=== PATIENT | female | born 1955 | race Caucasian/White ===

== ENCOUNTER 2021-11-24 18:09 | Emergency (ER) | payer MEDICARE ==
[~2021-11-24] VITALS: Ht 165.1 cm; Wt 97.5 kg
[2021-11-24] MEDS ORDERED: TRULICITY3 MG/0.5 M (19:28)
[2021-11-24] MEDS ORDERED: ADMELOG SO100 UNIT/2 (19:28)
[2021-11-24] MEDS ORDERED: METFORMIN HCL500 M3 PO (19:28)
[2021-11-24] MEDS ORDERED: CYMBALTA30 M2 PO (19:29)
[2021-11-24] MEDS ORDERED: LISI5 PO (19:29)
== END 2021-11-24 20:00 | disposition home or self-care (01) ==
LOC: ER 18:09
DX: S01.01XA Laceration without foreign body of scalp, initial encounter (principal); W10.9XXA Fall (on) (from) unspecified stairs and steps, initial encounter; Y92.9 Unspecified place or not applicable; Z88.6 Allergy status to analgesic agent; Z88.2 Allergy status to sulfonamides; Z88.8 Allergy status to other drugs, medicaments and biological substances; Z79.4 Long term (current) use of insulin; Z79.899 Other long term (current) drug therapy
CPT/HCPCS: 12001; 99282-25

== ENCOUNTER 2023-04-13 08:46 | Day surgery (SDC) | payer MEDICARE ==
[~2023-04-13] VITALS: Ht 162.6 cm; Wt 96.8 kg
[2023-04-13] VITALS (15 sets, daily range): BP systolic 109–147; BP diastolic 46–80
[~2023-04-13 08:46] MED LIST: ADMELOG SO100 UNIT/2; ASPI81CH PO; CYMBALTA30 M2 PO; Crestor20 MG PO; HUMALOG KW100 UNIT/1; LISI5 PO; METFORMIN HCL500 M3 PO; OMEP20ER PO; OZEMPIC1 MG/0.72; PREG150 PO; TRAZ100 PO; TRESIBA100 UNIT/2 SC; TRULICITY3 MG/0.5 M; TRULICITY3 MG/0.5 M SC
--- NOTE | 2023-04-13 09:45 | NUR ---
Ambulatory in Day Surgery with cane. Surgical site prepped with 2% Chlorhexidine cloth wipe. History, Chart, Medications and Allergies reviewed before start of procedure. Patient confirms NPO status and agrees with scheduled surgery. Pre-Op teaching done. Pt verbalizes understanding. Patient reports completing Chlorhexadine shower X2 prior to admission to hospital.
--- NOTE | 2023-04-13 13:56 | NUR ---
PATIENT ARRIVED FROM PACU TODAY AT 1400. POD 0 LEFT TOTAL KNEE PATIENT IS A&OX4. VS ARE WNL. PATIENT DENIES PAIN DUE TO SPINAL SHE HAD DURING THE PROCEDURE. SHE IS UNABLE TO WIGGLE HER TOES AND CAN'T FEEL FROM THE WAIST DOWN. PEDAL PULSES ARE STRONG AND WARM TO TOUCH. SHE IS TOLERATING SMALL AMOUNTS OF PO INTAKE. HER LEFT KNEE HAS AN AQUACEL THAT IS C/D/I. SHE IS LAYING IN BED WITH KNEES LOCKED STRAIGHT WITH CALL LIGHT IN REACH. DAUGHTER IS AT BEDSIDE.
--- NOTE | 2023-04-13 15:21 | NUR ---
SHIFT SUMMARY: POD 0 LEFT TOTAL KNEE PATIENT IS A&OX4. VS ARE WNL AND IS ON RA. PATIENT HAD A SPINAL DURING PROCEDURE AND REPORTS NUMBNESS FROM THE WAIST DOWN AND IS UNABLE TO WIGGLE TOES AT THIS TIME. HOWEVER, PEDAL PULSES ARE STRONG AND WARM TO TOUCH. HER LEFT KNEE HAS AN AQUACEL THAT IS C/D/I. SHE IS TOLERATING PO INTAKE. PATIENT IS LAYING IN BED WITH DAUGHTER AT BEDSIDE AND CALL LIGHT WITHIN REACH.
[2023-04-14 04:53] VITALS: BP 107/53
[2023-04-14 05:01] LABS: BASOPHILS ABSOLUTE AUTO 0.04 K/mm3 (0.00-0.23); BASOPHILS PERCENT AUTO 0 % (0-2); EOSINOPHILS PERCENT AUTO 0 % (0-6); Hematocrit 31.9 % (33.0-51.0); Hemoglobin 10.1 g/dL (11.5-16.0); IMMATURE GRAN ABSOLUTE AUTO 0.06 K/mm3 (0.00-0.10); IMMATURE GRAN PERCENT AUTO 1 % (0-1); LYMPHOCYTES ABSOLUTE AUTO 1.19 K/mm3 (0.84-5.20); LYMPHOCYTES PERCENT AUTO 11 % (21-46); MONOCYTES ABSOLUTE AUTO 0.86 K/mm3 (0.16-1.47); MONOCYTES PERCENT AUTO 8 % (4-13); Mean Corpuscular HGB 26.8 pg (26.0-34.0); Mean Corpuscular HGB Conc 31.7 g/dL (31.5-36.5); Mean Corpuscular Volume 85 fL (80-100); NEUTROPHILS ABSOLUTE AUTO 9.18 K/mm3 (1.96-9.15); NEUTROPHILS PERCENT AUTO 81 % (41-73); Platelet Count 231 K/mm3 (150-400); RDW Coefficient Variation 14.6 % (11.7-14.2); RDW Standard Deviation 45.3 fL (35.1-46.3); Red Blood Cell Count 3.77 M/mm3 (3.80-5.20); White Blood Cell Count 11.33 K/mm3 (4.00-11.30)
--- NOTE | 2023-04-14 05:05 | NUR ---
SHIFT SUMMARY POD1 LTKA. SENSATION AND CIRCULATION REMAINS INTACT. AQUACEL NOTED TO HAVE A SLOW GROWING SANGUINEOUS SPOT AT BOTTOM OF DRESSING. WHEN ATTEMPTING TO CHANGE DRESSING, TOP OF THE INCISION WAS EXPOSED AND BEGAN BLEEDING. GAUZE APPLIED AND PRESSURE TAPE TO REINFORCE DRESSING. CRYO HAS REMAINED IN PLACE. VSS. PT MEDICATED FOR PAIN WITH SCHEDULED AND ONE DOSE OF PRN. PT AMBUALTING TO BATHROOM, SBA WITH FWW AND GT BELT. VOIDING W/O DIFFICULTY. TOLLERATING PO INTAKE W/O N/V. NO ACUTE EVENTS NOTED T/O THE NIGHT. PLAN TO WORK WITH THERAPY AND D/C THIS AM.
[2023-04-14 06:05] LABS: Calcium, Blood 8.9 mg/dL (8.5-10.1); Creatinine, Blood 0.9 mg/dL (0.40-1.00); Magnesium, Blood 1.9 mg/dL (1.6-2.4); Potassium, Blood 4.3 mmol/L (3.5-5.5)
[2023-04-14 07:32] VITALS: BP 107/53
[2023-04-14 15:25] VITALS: BP 102/49
--- NOTE | 2023-04-14 19:21 | NUR ---
SHIFT SUMMARY ALERT, ORIENTED, PLEASANT, COOPERATIVE. POD 1 LEFT TKA. ROOM AIR, NO TELE, VSS. TOLERATING ADA DIET AND LIQUIDS. VOIDING WELL. AMBULATES SBA WITH FWW AND GAIT BELT TO BATHROOM. WORKED WITH PHYSICAL THERAPY AND CLEARED FOR DISCHARGE HOME. PAIN CONTROLLED WITH PO MEDS PER EMAR. OOZING TO LEFT KNEE AQUACEL CONTINUED THROUGH AM. DR DIXON CAME TO BEDSIDE AND CHANGED DRESSING. REMOVED AQUACEL. REPLACED WITH BULKY ABSORBENT DRESSING OF GAUZE AND ABD PADS AND DAVID WRAP. DC'D ASPIRIN AND TORADOL. PLAN TO OBSERVE ONE MORE NIGHT AND DISCHARGE HOME IN AM IF OOZING IMPROVED. REPORT GIVEN TO DIRECTIONAL DRILL OPERATOR RN.
[2023-04-14 19:32] VITALS: BP 134/66
[2023-04-15 02:10] VITALS: BP 110/54
--- NOTE | 2023-04-15 05:05 | NUR ---
SHIFT SUMMARY POD2 L TKA. COMPRESSION DRESSING IN PLACE, PLACED BY DR. DIXON. ABD APPEARS C/D/I. CIRCULATION AND SENATION REMAINS INTACT, SLIGHTLY SLOW CAP REFILL NOTED. 4 SECONDS. PT REPORTS INCERASED PAIN THIS AM, MEDICATED WITH PRN'S AND CRYO REMAINS IN PLACE. VSS, NO ACUTE EVENTS NOTED T/O THE NIGHT. PLAN TO HAVE DR. DIXON REASSESS L KNEE TODAY, POSSIBLE D/C. THE PATIENT IS CURRENTLY RESTING, IN NO DISTRESS, CALL LIGHT IN REACH
[2023-04-15 07:08] VITALS: BP 127/56
--- NOTE | 2023-04-15 10:44 | NUR ---
DRESSING CHANGED THIS RN UNWRAPPED AND CLEANED SURGICAL SITE WITH PEROXIDE AND GAUZE, REDRESSED WITH 4X4S ABD AND DAVID WRAP AROUND KNEE AND ANKLE. MINIMAL SS DRAINAGE NOTED ABOUT HALF DOLLAR IN SIZE AT LOWER PART OF DRESSING. PER PATIENT SITE LOOKS CONSIDERABLY LESS DRAINAGE.
[2023-04-15] MEDS ORDERED: ACET500 PO (11:33)
[2023-04-15] MEDS ORDERED: AMOCLA500 PO (11:34)
[2023-04-15] MEDS ORDERED: OXYC5 PO (11:34)
--- NOTE | 2023-04-15 13:58 | NUR ---
DISCHARGE PATIENT DISCHARGED VIA W/C, IV TAKEN OUT, ALL INSTRUCTIONS READ AND UNDERSTOOD. PATIENT ACKNOWLEDGED ALL BELONGINGS ARE PACKED UP AND IN HER POSSESSION.
== END 2023-04-15 13:50 | disposition home or self-care (01) ==
LOC: ORSCMMR 08:46 → ORD 10:45 → ORSCMMR 10:45 → SURS 13:34 → ORD 14:00 → ORSCMMR 04-14 23:15 → SURS 04-14 23:15 → ORSCMMR 04-15 13:50
PROVIDERS: Orthopaedic Surgery
PROC: 0SRD0JA Replacement of Left Knee Joint with Synthetic Substitute, Uncemented, Open Approach (ICD-10-PCS; principal; 2023-04-13 10:45)
DX: M17.0 Bilateral primary osteoarthritis of knee (principal); E11.9 Type 2 diabetes mellitus without complications; M79.7 Fibromyalgia; J44.9 Chronic obstructive pulmonary disease, unspecified; E78.5 Hyperlipidemia, unspecified; I10 Essential (primary) hypertension; K21.9 Gastro-esophageal reflux disease without esophagitis; Z87.891 Personal history of nicotine dependence; F41.9 Anxiety disorder, unspecified; Z79.84 Long term (current) use of oral hypoglycemic drugs; Z79.4 Long term (current) use of insulin; Z79.82 Long term (current) use of aspirin; Z79.899 Other long term (current) drug therapy; G47.33 Obstructive sleep apnea (adult) (pediatric); E66.01 Morbid (severe) obesity due to excess calories; Z68.36 Body mass index [BMI] 36.0-36.9, adult
CPT/HCPCS: 36415; 73560-LT; 80048; 82947; 83735; 85025; 97110; 97116; 97162; 97530; A9270; C1776; J0171; J0690; J0735; J1100; J1200; J1885; J2371; J2405; J2704; J2765; J2795; J3010; J7120

== ENCOUNTER 2023-10-26 08:22 | Day surgery (SDC) | payer OTHER ==
[~2023-10-26] VITALS: Ht 165.1 cm; Wt 92.4 kg
[2023-10-26] VITALS (13 sets, daily range): BP systolic 95–123; BP diastolic 53–68
[~2023-10-26 08:22] MED LIST changes: +ACET500 PO; +AMOCLA500 PO; +OXYC5 PO
[2023-10-26] MEDS ORDERED: Ropivacaine 0.5% HCl/Pf 123.125 MG,EPINEPHrine HCL 0.25 MG,Ketorolac Tromethamine 15 MG... INFIL SCH (08:45)
[2023-10-26] MEDS ORDERED: Tranexamic Acid 100 ML IV SCH (08:45)
[2023-10-26] MEDS ORDERED: Acetaminophen 500 MG Tab PO SCH ×2 (08:45→16:00)
[2023-10-26] MEDS ORDERED: OxyCODONE HCL 10 MG TABCR PO SCH (08:45)
[2023-10-26] MEDS ORDERED: Lactated Ringer's 1,000 ML IV SCH ×2 (08:45→09:50)
[2023-10-26] MEDS ORDERED: Chlorhexidine Mouth Care 15 ML UDC MT SCH (08:45)
[2023-10-26] MEDS ORDERED: CeFAZolin Sodium 2,000 MG in NS 100 ML IV SCH ×2 (08:45→18:00)
[2023-10-26] MEDS ORDERED: BASAGLAR K100 UNIT/6 SC (08:53)
[2023-10-26] MEDS ORDERED: NOVOLOG100 UNIT/2 SC (08:54)
[2023-10-26] MEDS ORDERED: OZEMPIC1 MG/0.72 SC (08:55)
--- NOTE | 2023-10-26 09:23 | NUR ---
Pre-Op teaching done. Pt verbalizes understanding. History, Chart, Medications and Allergies reviewed before start of procedure. PT BELONGINGS PLACED UNDER BED. GLASSES PLACED IN PACU WITH PT INFORMATION MANAGEMENT MANAGER BAG.
[2023-10-26] MEDS ORDERED: Midazolam HCl 1MG / ML 2ML Vial ONE ×2 (09:41→09:53)
[2023-10-26] MEDS ORDERED: FentaNYL Citrate 50 MCG/ML 2 ML Injection ONE (09:41)
[2023-10-26] MEDS ORDERED: Magnesium Hydroxide Conc 10 ML UDC PO PRN (09:50)
[2023-10-26] MEDS ORDERED: Metoclopramide HCl 5MG / ML 2ML Vial IV PRN (09:50)
[2023-10-26] MEDS ORDERED: Ondansetron HCl 2 MG / ML 2ML Vial IV PRN (09:50)
[2023-10-26] MEDS ORDERED: DiphenhydrAMINE HCL 25 MG Cap PO PRN (09:55)
[2023-10-26] MEDS ORDERED: Promethazine HCl 25 MG Tab PO PRN (09:55)
[2023-10-26] MEDS ORDERED: Bisacodyl 10 MG Supp PR PRN (09:55)
[2023-10-26] MEDS ORDERED: OxyCODONE HCL 5 MG TAB PO PRN ×2 (09:55)
[2023-10-26] MEDS ORDERED: propofoL 20 ML IV ONE ×2 (09:57→10:02)
[2023-10-26] MEDS ORDERED: HYDROmorphone HCl/Pf 1MG SYR IV PRN (10:00)
[2023-10-26] MEDS ORDERED: Insulin Human Lispro 100 Units/ML 3ML Syringe SC SCH ×2 (11:30→16:30)
[2023-10-26] MEDS ORDERED: Ketorolac Tromethamine 15mg Vial IV SCH (11:55)
[2023-10-26] MEDS ORDERED: MetFORMIN HCl 500 mg PO SCH (17:00)
--- NOTE | 2023-10-26 17:51 | NUR ---
shift summary s/p rtka pt has been up and ambulating with therapy. reports pain well controlled at this time. medication per emar. plan is for patient to work with therapy tomorrow and discharge home. dressing cdi. polar zhang in place.
[2023-10-26] MEDS ORDERED: Docusate Sodium 100 MG Cap PO SCH (21:00)
[2023-10-26] MEDS ORDERED: Insulin Glargine-Yfgn 100 Unit/mL 3 ML SYR SC SCH (21:00)
[2023-10-26] MEDS ORDERED: Pregabalin 75 MG Cap PO SCH (21:00)
[2023-10-26] MEDS ORDERED: TraZODone HCl 100 MG Tab PO SCH (21:00)
--- NOTE | 2023-10-27 04:08 | NUR ---
SHIFT SUMMARY NO ACUTE CHANGES. PT SLEPT WELL T/O NOC. VSS. AQUACEL DRESSING TO R KNEE REMAINS CDI WITH POLAR PACK IN PLACE. TYLENOL/TORADOL/2 ROXICODONE FOR PAIN MANAGEMENT. 1 SBA WITH FWW. PT EXPECTING TO DISCHARGE HOME TODAY.
[2023-10-27 05:26] VITALS: BP 118/65
[2023-10-27 05:52] LABS: BASOPHILS ABSOLUTE AUTO 0.07 K/mm3 (0.00-0.23); BASOPHILS PERCENT AUTO 1 % (0-2); EOSINOPHILS ABSOLUTE AUTO 0.18 K/mm3 (0.00-0.68); EOSINOPHILS PERCENT AUTO 3 % (0-6); Hemoglobin 9.7 g/dL (11.5-16.0); IMMATURE GRAN ABSOLUTE AUTO 0.01 K/mm3 (0.00-0.10); IMMATURE GRAN PERCENT AUTO 0 % (0-1); LYMPHOCYTES ABSOLUTE AUTO 1.06 K/mm3 (0.84-5.20); LYMPHOCYTES PERCENT AUTO 18 % (21-46); MONOCYTES ABSOLUTE AUTO 0.68 K/mm3 (0.16-1.47); MONOCYTES PERCENT AUTO 11 % (4-13); Mean Corpuscular HGB 26.5 pg (26.0-34.0); Mean Corpuscular HGB Conc 31.3 g/dL (31.5-36.5); Mean Corpuscular Volume 85 fL (80-100); Mean Platelet Volume 10.2 fL (9.1-12.4); NEUTROPHILS ABSOLUTE AUTO 3.96 K/mm3 (1.96-9.15); NEUTROPHILS PERCENT AUTO 66 % (41-73); Platelet Count 212 K/mm3 (150-400); RDW Coefficient Variation 15.8 % (11.7-14.2); RDW Standard Deviation 49.3 fL (35.1-46.3); Red Blood Cell Count 3.66 M/mm3 (3.80-5.20); White Blood Cell Count 5.96 K/mm3 (4.00-11.30)
[2023-10-27] MEDS ORDERED: Omeprazole 20 MG CapCR PO SCH (06:00)
[2023-10-27 06:20] LABS: Bun/Creatinine Ratio 13.3 (12.0-20.0); Calcium, Blood 9.1 mg/dL (8.5-10.1); Creatinine, Blood 0.83 mg/dL (0.40-1.00); Magnesium, Blood 1.6 mg/dL (1.6-2.4); Potassium, Blood 4.3 mmol/L (3.5-5.5)
[2023-10-27 07:21] VITALS: BP 120/61
[2023-10-27] MEDS ORDERED: Rosuvastatin Calcium 10 MG Tab PO SCH (09:00)
[2023-10-27] MEDS ORDERED: Aspirin 81 MG Chew PO SCH (09:00)
[2023-10-27] MEDS ORDERED: Lisinopril 5 MG Tab PO SCH (09:00)
--- NOTE | 2023-10-27 10:53 | NUR ---
Pt. is awake in bed when she welcomes my visit. Pt. is dressed and dislpays evidence of anticipating discharge. Pts. nurse and nurse leader arrive to check on Pts. dressing. After nursing staff departed I facilitated a life review. Pt. is pleasant but anticipates some unmet needs when she returns home. Listen with empathy and understanding. Pt. displays evidence of not being overwhelmed by having the home health support that she thought she would be receiving. Sought to normalize the Pt. experience and Prayed for the Pts. healing and recovery. Pt. verbalized gratitude for the spiritual care visit.
[2023-10-27] MEDS ORDERED: ACET500 PO (12:24)
[2023-10-27] MEDS ORDERED: OXAYDO5 M1 PO (12:25)
--- NOTE | 2023-10-27 15:49 | NUR ---
DISCHARGED PATIENT PASSED THERAPY, TOLRATED PO INTAKE, PAIN MANAGED. EDUCATED ON DRESSING CHANGES AND DISCHARGE INSTRUCTIONS. SIGNS AND VERBALIZES UNDERSTANDING. PRESCRIPTION CONFIRMED READY AT [facility]. THIS RN CHANGED DRESSING DUE TO S/S DRNG AT OUTER EDGE OF AQUACEL. DAVID WRAP APPLIED AND ICE MACHINE WAS PACKED UP FOR PATIENT. IV TAKEN OUT INTACT. INSTRUCTIONS AND BELONGINGS ALL IN PAITNETS BAG WITH DAUGHTER WHO TRANSPORTS VIA PRIVATE CAR.
[2023-10-27] MEDS ORDERED: DULoxetine HCL 30 MG Cap DR PO SCH (18:00)
== END 2023-10-29 14:52 | disposition home or self-care (01) ==
LOC: ORSCMMR 08:22 → ORD 10:15 → ORSCMMR 10:15 → ORD 10:30 → SURS 11:41 → ORD 13:00 → ORSCMMR 10-27 14:52 → SURS 10-27 14:52 → ORD 10-28 08:00 → ORSCMMR 10-29 14:52
PROVIDERS: Orthopaedic Surgery
PROC: 0SRC0JA Replacement of Right Knee Joint with Synthetic Substitute, Uncemented, Open Approach (ICD-10-PCS; principal; 2023-10-26 10:15)
DX: M17.11 Unilateral primary osteoarthritis, right knee (principal); Z96.652 Presence of left artificial knee joint; Z87.891 Personal history of nicotine dependence; Z79.899 Other long term (current) drug therapy; E11.9 Type 2 diabetes mellitus without complications; E78.5 Hyperlipidemia, unspecified; I10 Essential (primary) hypertension; M79.7 Fibromyalgia; Z79.84 Long term (current) use of oral hypoglycemic drugs; Z79.4 Long term (current) use of insulin; G47.33 Obstructive sleep apnea (adult) (pediatric)
CPT/HCPCS: 27447; 0055T; 36415; 73560-RT; 80048; 82947; 83735; 85025; 94762; 97110; 97116; 97161; A9270; C1713; C1776; J0171; J0690; J0735; J1815; J1885; J2250; J2704; J2795; J3010; J7120

== ENCOUNTER 2024-01-21 10:51 | Day surgery (SDC) | payer OTHER ==
[~2024-01-21] VITALS: Ht 165.1 cm; Wt 88.9 kg
[~2024-01-21 10:51] MED LIST changes: +BASAGLAR K100 UNIT/6 SC; +Lactated Ringer's 1,000 ML IV ONE; +NOVOLOG100 UNIT/2 SC; +OXAYDO5 M1 PO; +OZEMPIC1 MG/0.72 SC; +propofoL 50 ML IV ONE
[2024-01-21] MEDS ORDERED: VITAMIN B121000 MCG (11:34)
[2024-01-21] MEDS ORDERED: VITAMIN D325 MC3 (11:35)
[2024-01-21] MEDS ORDERED: ASCO500 (11:35)
[2024-01-21] MEDS ORDERED: CALCIUM CIT 311 EACH (11:36)
[2024-01-21] MEDS ORDERED: MAGNESIUM250 MG (11:37)
[2024-01-21] MEDS ORDERED: Iron Chews15 MG (11:38)
[2024-01-21] MEDS ORDERED: Lactated Ringer's 1,000 ML IV ONE (12:00)
[2024-01-21 13:16] VITALS: BP 111/72
== END 2024-01-21 13:21 | disposition home or self-care (01) ==
LOC: ORSCSDS 10:51
PROVIDERS: Specialist
PROC: 0D758ZZ Dilation of Esophagus, Via Natural or Artificial Opening Endoscopic (ICD-10-PCS; principal; 2024-01-21 12:15)
PROC: 0DJD8ZZ Inspection of Lower Intestinal Tract, Via Natural or Artificial Opening Endoscopic (ICD-10-PCS; principal; 2024-01-21 12:15)
PROC: 0DB58ZX Excision of Esophagus, Via Natural or Artificial Opening Endoscopic, Diagnostic (ICD-10-PCS; principal; 2024-01-21 12:15)
PROC: 0DB68ZX Excision of Stomach, Via Natural or Artificial Opening Endoscopic, Diagnostic (ICD-10-PCS; principal; 2024-01-21 12:15)
DX: R13.10 Dysphagia, unspecified (principal); K64.8 Other hemorrhoids; K59.09 Other constipation; Z86.010 Personal history of colon polyps; F41.9 Anxiety disorder, unspecified; G47.33 Obstructive sleep apnea (adult) (pediatric); M79.7 Fibromyalgia; E11.9 Type 2 diabetes mellitus without complications; E78.5 Hyperlipidemia, unspecified; K21.9 Gastro-esophageal reflux disease without esophagitis; I10 Essential (primary) hypertension; E66.9 Obesity, unspecified; Z68.32 Body mass index [BMI] 32.0-32.9, adult; Z79.4 Long term (current) use of insulin; Z79.85 Long-term (current) use of injectable non-insulin antidiabetic drugs; Z79.899 Other long term (current) drug therapy
CPT/HCPCS: 82947; 88305; 88342; J2704; J7120